=== PATIENT | male | born 1980 | race Caucasian/White ===

== ENCOUNTER 2016-11-27 13:11 | Emergency (ER) | payer OTHER ==
[~2016-11-27] VITALS: Ht 180.3 cm; Wt 180.0 kg
[~2016-11-27 13:11] MED LIST: METF500T4 PO; OXYC5TAB72 PO; POLY17PO6 PO
[2016-11-27 13:47] VITALS: BP 136/79; PULSE 103; RESP 16; O2SAT 98
--- NOTE | 2016-11-27 15:09 | ED.REPORT ---
HPI-Extremity Problem Lower Date of Service Nov 27, 2016 ED Provider: Shekhar Ruby MD A 36 year old male with a history of T1DM presents to the ED complaining of pain to the left big toe that began 6 days ago. Patient noticed an ulcer to the left big toe that has become increasingly worse since onset. Associated symptoms include redness and swelling. His BS was recorded at 203 this morning. Patient has been noncompliant with his insulin. He denies any previous diabetic ulcers. Patient denies fevers, chills or any other medical complaints at this time. Nursing Notes Stated Complaint: INFECTED BLISTER LEFT FOOT Chief Complaint: Extremity Trauma Nursing Notes Reviewed: Yes Allergies: Coded Allergies: No Known Allergies (Unverified , 07/15/16) Scheduled Cephalexin (Keflex) 500 Mg Capsule 500 MG PO QID Metformin (Metformin) 500 Mg Tablet 1,000 MG PO BID Polyethylene Glycol 3350 (Miralax) 17 Gm Powd.pack 17 GM PO DAILY Sulfamethoxazole/Trimeth 800-160 mg (Bactrim DS) 1 Each Tablet 1 TABLET PO BID Scheduled PRN Hydrocodone-Acetaminophen 5-325 mg (Hydrocodone-Acetaminophen 5-325 mg) 1 Each Tablet 1 TABLET PO Q4H PRN PRN For Pain oxyCODONE (oxyCODONE) 5 Mg Tablet 5 MG PO Q4H PRN PRN For Moderate Pain General Time Seen by MD: 15:07 Chief Complaint Toe injury left 1 Hx Obtained From: Patient Arrived By: Walk-in Onset Occurred: 6 days ago Symptom Duration: Since onset Location: : Toe left 1 Quality: Painful Severity: Current: Moderate Severity: Maximum: Moderate Associated with: Reports: Swelling Pertinent Negative: Pt denies other symptoms Recent Healthcare: No recent doctor visit, No recent hospitalization Past Medical History Past Medical History Reports: Diabetes mellitus (MARY) Past Surgical History None reported Smoking History Current Every Day Smoker Social History Other Social History: Local resident Ambulatory Status Independent Review of Systems Constitutional: Denies: Chills, Fever Musculoskeletal: Reports: Extremity pain (Left toe pain ), Extremity swelling ( Left toe swelling) Neurologic: Reports: Numbness, Denies: Change LOC Complete sys rev & neg: except as marked. Respiratory: Denies: Shortness of breath Cardiovascular: Denies: Chest pain GI: Denies: Abdominal pain, Nausea, Vomiting Physical Exam Initial Vital Signs Vital Signs (First) Date Time Temp Pulse Resp B/P Pulse Ox O2 Delivery O2 Flow Rate FiO2 11/27/16 13:47 36.1 103 16 136/79 98 11/27/16 17:40 Room Air Initial VS: Reviewed Head / Eyes: Atraumatic, Normocephalic, PERRL Neck: Supple, Non-tender, Full range of motion Upper Extremities: Vascular intact, Neuro intact, No swelling, No tenderness Skin: Warm, Dry, No cyanosis Neurologic: Alert, Oriented, Nonfocal Psychiatric: Mood/affect normal, Behavior normal, Normal thought content Lower Extremity / Pelvis / MS: Atraumatic, Neurologic intact, Vascular intact Ankle / Foot: Atraumatic, Neurologic intact, Vascular intact Left Great Toe: Positive: Erythema present (2 cm region or erythema ), Swelling present..., Tenderness present..., Negative: Warmth present (No warmth proximally ) ANKLE/FOOT: Sensation intact 1cm x 1cm shallow ulcer over dorsum Granulation tissue over second toe No induration Respiratory / Chest: Atraumatic, Breath sounds NL, Breath sounds = bilat, No respiratory distress Cardiovascular: Heart rate NL, Regular rhythm, Heart sounds NL, No gallop, No murmurs, No rubs, Peripheral circulation NL, Pulses = bilaterally CARDIO: NO calf swelling or tenderness Abdomen: Atraumatic, Soft, Non-tender, No distention Interpretation & Diagnostics X-Ray Interpretation Xray Interpretation: IMPRESSION: No sign of osteomyelitis or trauma. Soft tissue swelling is mild over the second digit distally. Dictated by: Dane Dumont M.D. on 11/27/2016 at 15:55 X-Ray Ordered: Foot left Interpretation / Wet Read by: Interpret - Radiologist Re-Eval/Medical Decision Med Decision/Clinical Course A 36 year old male with a history of MARY presents to the ED complaining of pain /ulcer to the left 2nd toe that began 6 days ago. Patient noticed an ulcer to the left big toe that has become increasingly worse since onset. Associated symptoms include redness and swelling. His BS was recorded at 203 this morning. Patient has been noncompliant with his insulin. He denies any previous diabetic ulcers. Patient denies fevers, chills or any other medical complaints at this time. Examination of the above reveals superficial ulcer with mild surrounding erythema. Patient is afebrile with stable vital signs and hemodynamically stable. Plain films of the region demonstrate no evidence of osteomyelitis. There is no proximal extending erythema. Patient with discussed with podiatry. They would like him started on Bactrim and Keflex. They will arrange for close clinic follow-up. Follow-up and return precautions were provided in detail to the patient and importance of close podiatry follow-up was reviewed. Bacitracin ointment and padded nonadherent dressings were applied to the area. Patient was discharged in stable condition with plan for podiatry follow-up. Importance of adherence to his insulin was reviewed. Re-Evaluation/Progress : Time of Eval: 16:59 Patient Status: Condition improved Re-Evaluation/Progress Note: Patient is rechecked. He is informed of his X-ray results and diagnosis. All of the patient's questions are adressed. He understands and agrees with the treatment plan to discharge. Consultation : Referral / Consult Name: Arnold Kelly DPM Call Returned at: 17:00 [employer]: Will see patient, Agrees with eval, Agrees with plan Note: Podiatry Will see in clinic tomorrow Recommend Keflex and Bactrim Counseled Regarding: Diagnosis, Need for follow-up, When/why to return to ED Discharge & Departure Impression: Primary Impression: Diabetic ulcer of left great toe Additional Impressions: Type I diabetes mellitus Diabetes mellitus complication status: with skin complications Diabetes mellitus complication detail: with foot ulcer Qualified Code: E10.621 - Type 1 diabetes mellitus with foot ulcer Noncompliance with medication regimen Disposition: Home Discharge Condition All VS Reviewed: Yes Condition: Improved Patient Instructions: Diabetic Foot Ulcers (ED) Additional Instructions: Thank you for seeking care at the emergency room. It is difficult for us to make definitive diagnoses in the ED but we believe that you are experiencing a diabetic ulcer. Our primary goal today in the ED was to evaluate you for any life-threatening conditions. Your evaluation was reassuring. You will be discharged with a prescription for antibiotics and pain medication* . Please take as prescribed. You should call the referred van cdl driver tomorrow for a follow up. You should return to the ED immediately if you develop swelling, warmth, fevers , pus, vomiting, cough, lightheadedness, weakness or any other concerning signs or symptoms. Thank you for letting us partake in your care today. *You have been prescribed a narcotic for pain relief. These drugs are usually combined with acetaminophen (Tylenol#3, Percocet, Darvocet, Anexsia, Vicodin) or aspirin (Empirin#3, Percodan, Synalogs-DC) for increased effect. Narcotics act on the central nervous system to reduce pain; they also impair mental alertness and physical abilities. We advise you not to drink alcohol, drive a car, or operate dangerous equipment when you are taking these drugs. You can lessen stomach irritation from your medicine by taking it with meals or a full glass of water. Common side effects of narcotics are: Nausea and vomiting , heartburn, constipation, dizziness, sleepiness, and mood changes. If you have bothersome side effects or symptoms of an allergic reaction (itching, hives, rash), stop taking your medicine and call your doctor or the emergency room right away. Please keep your narcotic medicine well out of the reach of children. Referrals: NOPCP (PCP) Arnold Kelly DPM Attestation Portions of this note were transcribed by Deepa Stiles. I, Dr. Ruby personally performed the history, physical exam and medical decision-making; I reviewed and confirmed the accuracy of the information in the transcribed note. Signed by: Maeve Gamboa, 11/27/16 3209. copies to: Arnold Kelly DPM, Beck O MD Nov 27, 2016 15:09 DEEPA STILES Nov 27, 2016 16:47
--- NOTE | 2016-11-27 15:57 | DRSVH ---
PROCEDURE: X-RAY TOES, TWO VIEWS INDICATIONS: infection TECHNIQUE: 3 views of the first and second toe(s) acquired. COMPARISON: None. FINDINGS: Bones: No fractures or dislocations. No suspicious bony lesions. Soft tissues: No suspicious soft tissue densities. IMPRESSION: No sign of osteomyelitis or trauma. Soft tissue swelling is mild over the second digit d istally. Dictated by: Dane Dumont M.D. on 11/27/2016 at 15:55 Approved by: Dane Dumont M.D. on 11/27/2016 at 15:55
[2016-11-27] MEDS ORDERED: HYDR-4003 PO (16:50)
[2016-11-27] MEDS ORDERED: CEPH-512 PO (16:50)
[2016-11-27] MEDS ORDERED: HYDROcodone-APAP 5-325 mg Tablet PO ONE (16:50)
[2016-11-27] MEDS ORDERED: SULF1TAB7 PO (17:01)
[2016-11-27 17:40] VITALS: BP 126/79; PULSE 82; RESP 16; O2SAT 98
[2016-11-27 18:09] VITALS: BP 126/79; PULSE 82; RESP 16; O2SAT 98
== END 2016-11-27 17:45 | disposition home or self-care (01) ==
LOC: SED 13:11
DX: E10.621 Type 1 diabetes mellitus with foot ulcer (principal); L97.521 Non-pressure chronic ulcer of other part of left foot limited to breakdown of skin; F17.200 Nicotine dependence, unspecified, uncomplicated; Z91.14 Patient's other noncompliance with medication regimen; Z79.84 Long term (current) use of oral hypoglycemic drugs